=== PATIENT | male | born 1965 | race Hispanic/Latino ===

== ENCOUNTER → 2018-04-07 | Outpatient (CLI) | payer OTHER | END | disposition home or self-care (01) | LOC: OIH 12:32 | PROVIDERS: ATTEND Family Medicine | DX: M19.071 Primary osteoarthritis, right ankle and foot (principal) | CPT/HCPCS: 73610; 73630 ==

== ENCOUNTER → 2018-10-11 | Outpatient (CLI) | payer OTHER | END | disposition home or self-care (01) | LOC: OIH 10:05 | PROVIDERS: ATTEND Family Medicine | DX: R06.02 Shortness of breath (principal); Q25.49 Other congenital malformations of aorta | CPT/HCPCS: 71046 ==

== ENCOUNTER 2018-10-14 14:08 | Emergency (ER) | payer OTHER ==
[2018-10-14] MEDS ORDERED: DEXAMETHASONE SOD PHOSPHATE 10MG/ML 1ML VIAL ONE (14:52)
[2018-10-14] MEDS ORDERED: DIPHENHYDRAMINE HCL 25 MG CAPSULE ONE (14:52)
[2018-10-14] MEDS ORDERED: FAMOTIDINE 20MG TAB 20 MG TAB ONE (14:52)
== END 2018-10-14 15:09 | disposition home or self-care (01) ==
LOC: EDH 14:08
DX: L50.0 Allergic urticaria (principal); F41.9 Anxiety disorder, unspecified; F31.9 Bipolar disorder, unspecified; F90.9 Attention-deficit hyperactivity disorder, unspecified type; Z72.0 Tobacco use
CPT/HCPCS: 96372; 99283; J1100; Q0163

== ENCOUNTER → 2018-10-19 | Outpatient (CLI) | payer OTHER | END | disposition home or self-care (01) | LOC: OIH 11:21 | PROVIDERS: ATTEND Family Medicine | DX: M25.511 Pain in right shoulder (principal) | CPT/HCPCS: 73030 ==

== ENCOUNTER 2018-12-08 00:19 | Emergency (ER) | payer OTHER | END 2018-12-08 01:07 | disposition home or self-care (01) | LOC: EDH 00:19 | DX: L03.113 Cellulitis of right upper limb (principal); F41.9 Anxiety disorder, unspecified; F31.9 Bipolar disorder, unspecified; F90.9 Attention-deficit hyperactivity disorder, unspecified type; Z72.0 Tobacco use ==

== ENCOUNTER → 2019-05-04 | Outpatient (CLI) | payer OTHER | END | disposition home or self-care (01) | LOC: OIH 08:18 | PROVIDERS: ATTEND Family Medicine | DX: I70.0 Atherosclerosis of aorta (principal); M51.34 Other intervertebral disc degeneration, thoracic region | CPT/HCPCS: 71046 ==

== ENCOUNTER → 2020-04-09 | Outpatient (CLI) | payer OTHER | END | disposition home or self-care (01) | LOC: OIH 12:41 | PROVIDERS: ATTEND Family Medicine | DX: M25.571 Pain in right ankle and joints of right foot (principal) | CPT/HCPCS: 73610 ==